=== PATIENT | male | born 1950 | race Caucasian/White ===

== ENCOUNTER 2017-11-19 05:43 | Day surgery (SDC) | payer MEDICARE ==
[2017-11-17 10:07] VITALS: BMI 24.3
[2017-11-19] MEDS ORDERED: Lactated Ringer's 1,000 ML IV ONE (07:30)
[2017-11-19] MEDS ORDERED: Lidocaine 1% Inj (20ml) ONE (08:03)
[2017-11-19] MEDS ORDERED: ceFAZolin IV 1 gm in Dextrose 1 GM/50 ML BAG IVPB ONE (08:03)
[2017-11-19] MEDS ORDERED: Lidocaine 1% Inj (20ml) IJ ONE (08:08)
[2017-11-19] MEDS ORDERED: Oxycodone/Acetaminophen 5/325 mg Tab PO PRN (08:32)
--- NOTE | 2017-11-19 08:34 | CP.PCM.PN ---
Subjective - Date & Time of Evaluation Date of Evaluation: 11/19/17 Time of Evaluation: 08:34 - Subjective Subjective: [place] [employer] patient report reviewed, no CDS. Patient counseled on the risks of addiction, physical or psychological dependence, and overdose associated with opioid drugs and the danger of taking opioid drugs with alcohol and other central nervous system depressants, and cautioned patient on storage and disposal. Objective - Vital Signs/Intake and Output Vital Signs (last 24 hours): Temp Pulse Resp BP Pulse Ox 97.5 F L 79 18 126/68 95 11/19/17 06:49 11/19/17 06:53 11/19/17 06:49 11/19/17 06:49 11/19/17 06:49 - Medications Medications: Current Medications Oxycodone/Acetaminophen (Percocet 5/325 Mg Tab) 1 tab PO Q4 PRN PRN Reason: Pain, moderate (4-7) Stop: 11/22/17 08:33
[2017-11-19 10:48] VITALS: RESP 18
[2017-11-19 11:54] VITALS: O2SAT 98
[2017-11-19 15:06] VITALS: BP 120/68; PULSE 70; TEMP 98
--- NOTE | 2017-11-26 19:31 | OP ---
PROCEDURE DATE: 11/19/2017 SURGEON: Andrey Dupree MD PREOPERATIVE DIAGNOSES: Right third digit trigger finger and stenosing flexor tenosynovitis. POSTOPERATIVE DIAGNOSES: Right third digit trigger finger and stenosing flexor tenosynovitis. PROCEDURE: 1. Right third digit tendon sheath incision, A1 faby, 81743. 2. Right third digit flexor tendon local tenolysis, 91667. TYPE OF ANESTHESIA: Local. COMPLICATIONS: None. SPECIMENS: None. OPERATIVE FINDINGS: Marked fibrosis of the A1 pulleys with severe reactive tenosynovitis and stenosing over the underlying flexor tendons. DESCRIPTION OF PROCEDURE: After successful administration of regional anesthesia, a well-padded tourniquet was applied to the patient's right upper extremity. The entire extremity was then prepped and draped in standard surgical fashion. With a sterile marking pen, the proposed incision was outlined. This was a longitudinal incision extending from the distal palmar crease to the base of the digit. The arm was then elevated and exsanguinated with an Esmarch bandage. The tourniquet was inflated to 250 mmHg and the Esmarch was removed. Attention was directed to the third digit. An incision was made and all superficial veins were cauterized by blunt and gentle dissection. The subcutaneous tissues with neurovascular bundles were from the underlying flexor mechanism. Sharply, the A1 faby was identified and was noted to be markedly fibrotic. With a scalpel, the faby was completely incised with care taken to preserve the critical A2 faby. The tendons were then lifted from their bed and local tenosynovectomy was performed. The wound was then irrigated and hemostasis was achieved with cautery. The skin wounds were closed with 4-0 nylon interrupted sutures. A sterile fluff dressing was applied for surgical repair. The patient tolerated the procedure well and was taken to the recovery room in stable condition. Andrey Dupree MD
== END 2017-11-19 14:25 | disposition home or self-care (01) ==
LOC: H.OPSURG 05:43
PROVIDERS: ATTEND Orthopaedic Surgery
DX: M65.331 Trigger finger, right middle finger (principal); E78.5 Hyperlipidemia, unspecified; E11.9 Type 2 diabetes mellitus without complications; I10 Essential (primary) hypertension; M65.841 Other synovitis and tenosynovitis, right hand
CPT/HCPCS: 26055; 26440; 82948; J0690; J3010; J7030; J7120